=== PATIENT | female | born 1985 ===

== ENCOUNTER 2016-07-31 16:45 | Emergency (ER) | payer MEDICAID, OTHER ==
[~2016-07-31] VITALS: Ht 165.1 cm; Wt 81.8 kg
[~2016-07-31 16:45] MED LIST: FERR159T2 PO; LANS15CA24 PO; PANCREASE
[2016-07-31 16:51] VITALS: BP 148/96; PULSE 105; RESP 16; O2SAT 99
[2016-07-31 17:27] LABS: BASOPHILS % (AUTO) 0.6 % (0-3); EOSINOPHILS % (AUTO) 2.7 % (0-5); MONOCYTES % (AUTO) 4.8 % (4-12); Mean Corpuscular Volume 75.3 fL (81-100); Platelet Count 484 bil/L (150-400)
[2016-07-31 18:01] LABS: Lipase 77 U/L (13-60)
[2016-07-31] MEDS ORDERED: 0.9% Sodium Chloride 1,000 ML IV ONE (19:03)
--- NOTE | 2016-07-31 19:03 | ED.REPORT ---
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 The pain is exacerbated by eating. Associated symptoms include reduced appetite, nausea, vomiting, and green diarrhea. The patient denies constipation or other symptoms. She was seen at the [facility] ER on 07/21/16 with similar symptoms. At that time her labs were normal and she eloped before a CT could be performed. According to their note this is in the setting of not receiving narcotic pain medications. The patient has a GI appointment next month. The patient presents to the ER this evening requesting pain management. Nursing Notes Stated Complaint: STOMACH PAIN VOMITING Chief Complaint: Female Abdominal Pain Nursing Notes Reviewed: Yes Allergies: Coded Allergies: morphine (Verified Allergy, Intermediate, Rash,Itching,, 07/31/16) promethazine (Verified Allergy, Intermediate, Rash,Itching,, 07/31/16) ibuprofen (Verified Allergy, Unknown, 07/31/16) Scheduled ([Pancrease]) Unknown Strength Unknown Dose TIDAC ([Pancrease]) 5 TAB WITH SNACKS Ferrous Sulfate, Dried (Iron) 159 Mg Tablet.er 159 MG PO BID Lansoprazole (Prevacid) 15 Mg Capsule.dr 15 MG PO DAILY Scheduled PRN Ondansetron ODT (Zofran ODT) 4 Mg Tablet 4 MG PO Q4H PRN PRN For Nausea General Time Seen by MD: 17:49 Chief Complaint Abdominal pain Hx Obtained From: Patient Arrived By: Walk-in Sudden in Onset?: No Onset Occurred: 6 days ago Symptom Duration: Since onset Location: : Abdomen Quality: Painful Severity: Current: Moderate Severity: Maximum: Moderate Exacerbated by: Eating Pertinent Negative: Relieved by nothing Context Related History: Reports Cancer Recent Healthcare: Recent doctor visit Similar Sx Previous: Yes Past Medical History Past Medical History Chronic pancreatitis 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 Physical Exam Vital Signs Vital Signs Date Time Temp Pulse Resp B/P Pulse Ox O2 Delivery O2 Flow Rate FiO2 07/31/16 21:36 94 16 118/77 98 Room Air 07/31/16 16:51 36.6 105 16 148/96 99 Initial VS: Reviewed Head / Eyes: Atraumatic, Normocephalic ENT: Conjunctiva normal, No scleral icterus Neck: Supple, Full range of motion Skin: Warm, Dry, No cyanosis Neurologic: Alert, Oriented, Nonfocal Psychiatric: Mood/affect normal, Behavior normal, Normal thought content General/Constitutional: Awake, Alert Respiratory / Chest: Breath sounds NL, Breath sounds = bilat, No respiratory distress Cardiovascular: Heart rate NL, Regular rhythm, Heart sounds NL, No gallop, No murmurs, No rubs, Peripheral circulation NL Abdomen: Soft (No rigidity), No guarding, No rebound Tenderness/Guarding/Rebound: Positive: Tender LUQ... (Mild), Tender epigastric Well-healed vertical surgical incision present Interpretation & Diagnostics URINE TEST: Negative URINE DIPSTICK: Bedside Urine pH * 5 Bedside Urine Leukocyte Esterase * Trace Bedside Urine Nitrite * Negative Bedside Urine Protein * Trace Bedside Urine Glucose * Normal Bedside Urine Ketones * Negative Bedside Urine Urobilinogen * Normal Bedside Urine Bilirubin * Negative Bedside Urine Occult Blood * Trace Urine to Lab * Yes Lab Results Interpretation Result Diagram: 07/31/16 1717 07/31/16 1717 Test 07/31/16 17:17 07/31/16 19:15 White Blood Count 7.7th/mm3 (3.8-10.1) Red Blood Count 5.51mil/mm3 (3.90-5.20) Hemoglobin 12.7g/dL (12.0-15.6) Hematocrit 41.5% (35.0-46.0) Mean Corpuscular Volume 75.3fL (81-100) Mean Corpuscular Hemoglobin 23.0pg (27.0-35.0) Mean Corpuscular Hemoglobin Concent 30.6% (32.0-37.0) Red Cell Distribution Width 17.0% (12.3-15.4) Platelet Count 484bil/L (150-400) Neutrophils (%) (Auto) 64.0% (40-74) Lymphocytes (%) (Auto) 27.8% (14-46) Monocytes (%) (Auto) 4.8% (4-12) Eosinophils (%) (Auto) 2.7% (0-5) Basophils (%) (Auto) 0.6% (0-3) Sodium Level 137mEq/L (134-144) Potassium Level 4.3mEq/L (3.5-5.2) Chloride Level 102mEq/L (97-108) Carbon Dioxide Level 21mmol/L (18-29) Blood Urea Nitrogen 16mg/dL (6-20) Creatinine 0.77mg/dL (0.57-1.00) Estimat Glomerular Filtration Rate 124mL/min (>59) Glucose Level 100mg/dL (60-99) Calcium Level 9.1mg/dL (8.5-10.1) Magnesium Level 2.0mg/dL (1.6-2.6) Total Bilirubin < 0.2mg/dL (0.0-1.2) Aspartate Amino Transf (AST/SGOT) 19U/L (0-50) Alanine Aminotransferase (ALT/SGPT) 14U/L (0-32) Alkaline Phosphatase 50U/L (25-150) Total Protein 8.0g/dL (6.4-8.4) Albumin 4.3g/dL (3.4-5.0) Lipase 77U/L (13-60) Human Chorionic Gonadotropin, Qual <0.500 (Negative) Hold Kan Top Tube Received (Received) Urine Color Yellow (YELLOW) Urine Appearance Clear (CLEAR,HAZY) Urine pH 6.0 (5.0-8.0) Urine Specific [place] 1.025 (1.003-1.035) Urine Protein Negativemg/dL (NEG,TRACE) Urine Glucose (UA) Negativemg/dL (NEGATIVE) Urine Ketones Negativemg/dL (NEGATIVE) Urine Occult Blood Negative (NEGATIVE) Urine Nitrite Negative (NEGATIVE) Urine Bilirubin Negative (NEGATIVE) Urine Urobilinogen Normalmg/dL (NORMAL) Urine Leukocyte Esterase Negative (NEGATIVE) Urine RBC 0-2/hpf (0-2) Urine WBC 0-5/hpf (0-5) Urine Epithelial Cells Moderate/hpf (NONE-MOD) Urine Crystals None seen (NONE SEEN) Urine Bacteria Moderate/hpf (NONE-FEW) Urine Hyaline Casts None/lpf (NONE) Urine Granular Casts None seen (NONE SEEN) Urine Waxy Casts None seen (NONE SEEN) Urine Red Blood Cell Casts None seen (NONE SEEN) Urine White Blood Cell Casts None seen (NONE SEEN) Urine Mucus None seen (None Seen) Urine Trichomonas None seen (NONE SEEN) Urine Yeast None (NONE SEEN) Urinalysis Comment None Urine Culture Reflexed Indicated CT Abd / Pelvis Interpretation IMPRESSION: 1. Mildly prominent mesenteric lymph nodes, suggestive of mesenteric adenitis in the appropriate clinical setting. Dictated by: Rony Medina M.D. 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 The pain is exacerbated by eating. Associated symptoms include reduced appetite, nausea, vomiting, and green diarrhea. The patient denies constipation or other symptoms. She was seen at the [facility] ER on 07/21/16 with similar symptoms. At that time her labs were normal and she eloped before a CT could be performed. According to their note this is in the setting of not receiving narcotic pain medications. The patient has a GI appointment next month. The patient presents to the ER this evening requesting pain management. Obtained outside records and reviewed most recent encounter at [facility] on 07/21/16. At that time patent presented with similar abdominal pain symptoms. Her UA, CMP, CBC, and lipase were unremarkable. A plan was in place for an abdominal CT scan but the patient reportedly eloped before the scan because she was not receiving narcotic pain medications. Here in the emergency department the patient is afebrile with stable vital signs and examination as above. She was treated with IV fluids, Zofran for nausea and hydromorphone for pain based upon her initial presentation. Laboratory studies were notable as below: URINE : Negative CBC unremarkable Lipase 77 CMP otherwise unremarkable UA unconvincing for UTI Abdomen CT: 1. Mildly prominent mesenteric lymph nodes, suggestive of mesenteric adenitis in the appropriate clinical setting. Serial abdominal examinations remained reassuring. CT scan of the laboratory studies as above are relatively reassuring. Lipase is mildly elevated however she is now tolerating PO and in no apparent distress. No evidence on CT scan suggestive of complication related to pancreatitis. CT scan was not ideal imaging study to determine presence or absence of lesion affecting the common bile duct however at this time her bilirubin is not elevated and her transaminases are unremarkable. Patient states that shefeels better and would like to be discharged. She has an appointment next week with GI and she is advised to follow up at that time. She is advised to return right away should she develop any worsening symptoms, fevers, abdominal pain or other concerning signs or symptoms. Prior to discharge follow-up and return precautions were reviewed in detail with the patient who verbalized understanding and agreement with the plan. The patient was discharged in stable condition. Time of Eval: 21:00 Patient Status: Condition improved Re-Evaluation/Progress Note: Discussed with patient lab and CT results, diagnosis, and plan for discharge. Follow-up and return to the ER instructions given. Patient agrees with plan for care and all questions were addressed. Counseled Regarding: Diagnosis, Lab results, Need for follow-up, When/why to return to ED Discharge & Departure Primary Impression: Chronic abdominal pain Additional Impressions: Chronic pancreatitis Pancreatitis type: unspecified pancreatitis type Qualified Code: K86.1 - Other chronic pancreatitis Nausea and vomiting Vomiting type: unspecified Vomiting Intractability: unspecified Qualified Code: R11.2 - Nausea with vomiting, unspecified Disposition: Home Discharge Condition All VS Reviewed: Yes Condition: Improved Additional Instructions: Thank you for seeking care at the emergency room. Our primary goal today in the ED was to evaluate you for any life-threatening conditions. Your evaluation was reassuring. You will be discharged with a prescription for nausea medication. You should follow-up with your GI doctor in the next week as previously arranged. You should return to the ED immediately if you develop worsening symptoms, fevers, vomiting, cough, shortness of breath, chest pain, lightheadedness, weakness or any other concerning signs or symptoms. Thank you for letting us partake in your care today. Referrals: OTHER,PHYSICIAN (PCP) Scribe Attestation Portions of this note were transcribed by Ashia Zamudio. I, Dr. Weiner, personally performed the history, physical exam, and medical decision-making; I reviewed and confirmed the accuracy of the information in the transcribed note. Signed by: Serafin Gardiner, 07/31/2016, 22:30 Darian Weiner MD Jul 31, 2016 19:03 ASHIA ZAMUDIO Jul 31, 2016 20:08
[2016-07-31] MEDS ORDERED: Ondansetron 2 mg/mL 2 mL Inj IVPUSH ONE (19:05)
[2016-07-31] MEDS: HYDROmorphone 0.5 mg/0.5 mL iSecure Syringe IVPUSH PRN ×2 (19:18→20:24)
--- NOTE | 2016-07-31 19:35 | DRSVH ---
PROCEDURE: CT ABDOMEN AND PELVIS WITH CONTRAST ([id number]) INDICATIONS: abd pain, vomiting TECHNIQUE: After the administration of intravenous contrast, 5 mm thick sections acquired from the diaphragm to the symphysis. 5 mm coronal and sagittal reformats were acquired. For radiation dose reduction, the following was used: automated exposure control, adjustment of mA and/or kV according to patient siz e. COMPARISON: [facility], CT, ABD/PELVIS W/CON (PNL), 05/16/2010, 20:47. [facility], CT, ABD/PELVIS W/CON (PNL), 04/24/2010, 22:56. FINDINGS: Image quality: Excellent. ABDOMEN: Lung bases: Lung bases are clear. Heart size is normal. Solid organs: Liver and spleen are normal in size and enhancement. Gallbladder is within normal cruz its. Biliary system is non dilated. Pancreas enhances normally. No adrenal nodules. Kidneys demon strate normal size and enhancement, without hydronephrosis. Peritoneum and bowel: Bowel loops demonstrate normal wall thickness and caliber. Status post colect soy. No free fluid or air. Nodes and vessels: No retroperitoneal or mesenteric adenopathy by size criteria. Mildly prominent me senteric lymph nodes are present. Aorta and inferior vena cava are normal in size. Miscellaneous: No ventral hernias. PELVIS: Genitourinary: Bladder wall thickness is normal. Miscellaneous: No inguinal hernias or adenopathy. Bones: No suspicious bony lesions. No vertebral body compression fractures. IMPRESSION: 1. Mildly prominent mesenteric lymph nodes, suggestive of mesenteric adenitis in the appropriate clin ical setting. Dictated by: Rony Medina M.D. on 07/31/2016 at 19:32 Approved by: Rony Medina M.D. on 07/31/2016 at 19:34
[2016-07-31 19:43] LABS: APPEARANCE,URINE CLEAR (CLEAR,HAZY); COLOR,URINE YELLOW (YELLOW)
[2016-07-31 19:44] LABS: OCCULT BLOOD,URINE NEGATIVE (NEGATIVE); UROBILINOGEN,URINE NORMAL (NORMAL)
[2016-07-31] MEDS ORDERED: MetoCLOpramide 5 mg/mL 2 mL Inj IVPUSH PRN (21:00)
[2016-07-31] MEDS ORDERED: ONDA4TAB9 PO (21:01)
[2016-07-31] MEDS ORDERED: HYDROmorphone 0.5 mg/0.5 mL iSecure Syringe IVPUSH ONE (21:10)
[2016-07-31 21:36] VITALS: BP 118/77; PULSE 94; RESP 16; O2SAT 98
== END 2016-07-31 21:35 | disposition home or self-care (01) ==
LOC: SED 16:45
DX: R10.12 Left upper quadrant pain (principal); R10.13 Epigastric pain; G89.29 Other chronic pain; K86.1 Other chronic pancreatitis; R11.2 Nausea with vomiting, unspecified; F17.200 Nicotine dependence, unspecified, uncomplicated; Z90.49 Acquired absence of other specified parts of digestive tract; Z88.5 Allergy status to narcotic agent; Z88.8 Allergy status to other drugs, medicaments and biological substances
CPT/HCPCS: 36415; 74177; 80053; 81000; 81025; 83690; 83735; 84703; 85025; 87086; 87088; 96361; 96374; 96375; 96376; 99285; J1170; J2405; J2765; J7030; Q9967